=== PATIENT | female | born 1995 | race Caucasian/White ===

== ENCOUNTER 2020-04-01 08:10 | Inpatient (IN) | payer OTHER ==
[2020-04-01] MEDS: ELECTROLYTE-148 SOLN 500 ML IV SCH (09:00)
[2020-04-01] MEDS: ELECTROLYTE-148 SOLN 1,000 ML IV SCH (09:30)
[2020-04-01 10:13] VITALS: BMI 36.8
[2020-04-01] MEDS ORDERED: CITRIC ACID/SODIUM CITRATE 30 ML UNIT-DOSE CUP PO ONE (10:15)
[2020-04-01] MEDS ORDERED: ePHEDrine SULFATE 50 MG/1 ML AMPULE ONE (10:23)
[2020-04-01] MEDS ORDERED: morphine SULFATE/PF 0.5 MG/ML (2cc Syringe - QUVA) ONE (10:23)
[2020-04-01 10:39] LABS: INR 0.95 (0.83-1.09); PROTHROMBIN TIME (PATIENT) 11.5 SEC (9.7-13.0)
[2020-04-01 10:42] LABS: ACTIVATED PTT 22.4 SECONDS (25.2-36.5)
[2020-04-01] MEDS ORDERED: diphenhydrAMINE HCL 25 MG CAPSULE (FP) PO PRN (10:58)
[2020-04-01] MEDS ORDERED: BENZOCAINE 28 GM HEMORRHOIDAL OINTMENT RC PRN (10:58)
[2020-04-01] MEDS ORDERED: METHYLERGONOVINE MALEATE 0.2 MG/1 ML AMP IM PRN (10:58)
[2020-04-01] MEDS ORDERED: BENZOCAINE 20% 57 GM BOTTLE TP PRN (10:58)
[2020-04-01] MEDS ORDERED: WITCH HAZEL 50% (TUCKS) 40 PAD/JAR PAD TP PRN (10:58)
[2020-04-01] MEDS ORDERED: IBUPROFEN 800 MG/8 ML IJ IVPB PRN (10:58)
[2020-04-01 11:00] LABS: CHLORIDE 109 mmol/L (98-107); POTASSIUM 3.4 mmol/L (3.5-5.1); SODIUM 138 mmol/L (136-145)
[2020-04-01] MEDS ORDERED: ELECTROLYTE-148 SOLN 1,000 ML IV SCH (11:00)
[2020-04-01 11:02] LABS: ALBUMIN 2.7 g/dl (3.4-5.0); ANION GAP 6 MMOL/L (8-16); BLOOD UREA NITROGEN 7.8 mg/dL (7-18); CALCIUM 8.2 mg/dL (8.5-10.1); CO2 24 mmol/L (21-32)
[2020-04-01 11:03] LABS: GLUCOSE,RANDOM 136 mg/dL (74-106)
[2020-04-01 11:05] LABS: SGPT/ALT 15 U/L (13-61)
[2020-04-01 11:06] LABS: CREATININE 0.6 mg/dL (0.55-1.3); SGOT/AST 14 U/L (15-37)
[2020-04-01 11:07] LABS: BILIRUBIN,TOTAL < 0.1 mg/dL (0.2-1); TOT PROT 5.9 g/dl (6.4-8.2)
[2020-04-01 11:08] LABS: ALK PHOS 162 U/L (45-117)
[2020-04-01] MEDS ORDERED: valACYclovir HCL 500 MG TABLET (FP) PO ONE (11:30)
[2020-04-01] MEDS ORDERED: OXYTOCIN 20 UNITS in 0.9% NS 20 UNIT/1,000 ML INFUS.BAG IV ONE (13:04)
[2020-04-01] MEDS: OXYTOCIN 20 UNITS in 0.9% NS 20 UNIT/1,000 ML INFUS.BAG IV SCH (13:20)
[2020-04-01] MEDS ORDERED: morphine SULFATE/PF 0.5 MG/ML (2cc Syringe - QUVA) EP ONE (13:26)
[2020-04-01] MEDS ORDERED: ONDANSETRON 4 MG/2 ML VIAL IVPUSH PRN (13:26)
[2020-04-01 13:29] LABS: CORD BASE EXCESS -2.6 mmol/L (0-2); CORD HCO3 22.7 mmHg (20-29); CORD PCO2 41.4 mmHg (30-78); CORD pH 7.357 (7.14-7.44)
[2020-04-01 13:30] LABS: CORD BASE EXCESS -2.2 mmol/L (0-2); CORD HCO3 23.8 mmHg (20-29); CORD PCO2 45.4 mmHg (30-78); CORD pH 7.338 (7.14-7.44)
[2020-04-02] MEDS: ACETAMINOPHEN 325 MG TABLET (FP) PO PRN ×3 (05:54→21:56)
[2020-04-02] MEDS: IBUPROFEN 600 MG TABLET (FP) PO PRN ×3 (05:55→21:59)
[2020-04-02] MEDS: SIMETHICONE 80 MG TAB.CHEW (FP) PO PRN ×3 (05:56→21:59)
[2020-04-02 09:26] LABS: HEMATOCRIT 27.7 % (32.4-45.2); HEMOGLOBIN 9.3 GM/dL (10.7-15.3); MCH 26.3 pg (25.7-33.7); MCHC 33.7 g/dl (32.0-36.0); MEAN CELL VOLUME 78.1 fl (80-96); MEAN PLT VOLUME 7.8 fl (7.5-11.1); PLATELET COUNT 260 K/MM3 (134-434); RBC 3.55 M/mm3 (3.60-5.2); RDW 13.9 % (11.6-15.6); WHITE BLOOD COUNT 11.3 K/mm3 (4.0-10.0)
[2020-04-02] MEDS ORDERED: FLU VACCINE (FLULAVAL) PF 60 MCG/0.5 ML SYRINGE 2020-2021 IM ONE (10:00)
[2020-04-02] MEDS ORDERED: DIPHTH,PERTUSS(ACELL),TET 0.5 ML DISP.SYRIN IM ONE (10:00)
[2020-04-02] MEDS ORDERED: HYDROmorphone HCL 2 MG TABLET PO PRN (10:58)
[2020-04-02] MEDS ORDERED: oxyCODONE HCL 5 MG TABLET PO PRN ×2 (10:58)
[2020-04-02] MEDS ORDERED: BISACODYL 10 MG SUPP.RECT PR PRN (10:59)
[2020-04-02] MEDS: ELECTROLYTE-148 SOLN 1,000 ML IV SCH (17:01)
[2020-04-02] MEDS: ELECTROLYTE-148 SOLN 500 ML IV SCH (17:01)
[2020-04-02] MEDS: OXYTOCIN 20 UNITS in 0.9% NS 20 UNIT/1,000 ML INFUS.BAG IV SCH (17:01)
[2020-04-03] MEDS: IBUPROFEN 600 MG TABLET (FP) PO PRN (06:37)
[2020-04-03] MEDS: ACETAMINOPHEN 325 MG TABLET (FP) PO PRN (06:37)
[2020-04-03 10:35] VITALS: BP 124/83; PULSE 93; TEMP 98.4
[2020-04-03] MEDS ORDERED: SENNOSIDES/DOCUSATE COMBO (SENNA PLUS) TABLET (UD) PO PRN (22:00)
== END 2020-04-03 13:00 | disposition home or self-care (01) | DRG 540 ==
LOC: JLDR 08:10 → J3W 15:15
PROVIDERS: ADMIT Obstetrics & Gynecology; ATTEND Obstetrics & Gynecology
PROC: 10D00Z1 Extraction of Products of Conception, Low, Open Approach (ICD-10-PCS; principal; 2020-04-01)
DX: O34.219 Maternal care for unspecified type scar from previous cesarean delivery (principal); Z3A.39 39 weeks gestation of pregnancy; Z37.0 Single live birth
CPT/HCPCS: 36415; 36600; 80053; 82803; 85027; 85461; 85610; 85730; 86694; 86695; 86696; 86999; 88307-TC; 90715; G0008; Q2036